=== PATIENT | male | born 1955 | race Caucasian/White ===

== ENCOUNTER 2023-05-24 19:48 | Inpatient (IN) ==
[2023-05-24 20:22] LABS: ABS Basophils 0.1 10^3/uL (0.0-0.1); ABS Eosinophils 0.3 10^3/uL (0.0-0.5); ABS Lymphocytes 1.8 10^3/uL (1.0-4.8); ABS Monocytes 0.5 10^3/uL (0.0-1.1); ABS Neutrophils 2.7 10^3/uL (1.5-7.6); ABS Nucleated RBC 0.01 10^3/ul; Eosinophil % 6.2 %; Hematocrit 43.5 % (38-53); Hemoglobin 14.8 g/dL (13.2-16.3); Lymphocyte % 33.3 %; Mean Corpuscular Hemoglobin 29.6 pg (27-33); Mean Corpuscular Hgb Conc 34.2 g/dL (31-36); Mean Corpuscular Volume 86.5 fL (80-97); Mean Platelet Volume 9.3 fL (7.5-11.2); Nucleated Red Blood Cells % 0.1 /100 WBC (0.0-0.4); Platelet Count 294 10^3/uL (150-450); Red Blood Count 5.02 10^6/uL (4.06-5.63); Red Cell Distribution Width 14.2 % (12-17); White Blood Count 5.4 10^3/uL (3.6-10.2)
[2023-05-24 20:48] LABS: INR 1.08 (0.88-1.18)
[2023-05-24 20:52] LABS: Albumin 4.4 g/dL (3.2-5.2); Albumin/Globulin Ratio 1.6 (1-3); Calcium 9.9 mg/dL (8.6-10.3); Creatinine, Serum 0.84 mg/dL (0.67-1.17); Globulin 2.7 g/dL (2-4); Potassium 4.1 mmol/L (3.5-5.0); Total Bilirubin 0.4 mg/dL (0.2-1.0); Total Protein 7.1 g/dL (6.4-8.9); eGFR CKD-EPI 94.4 (>60)
[2023-05-24] MEDS ORDERED: Morphine 4 MG/ML VIAL (1 ml) IV ONE (21:03)
[2023-05-24] MEDS ORDERED: Al Hydrox/Mg Hydrox/Simet LIQ 30 ML UDC PO ONE (21:03)
[2023-05-24] MEDS ORDERED: Iohexol 350 (CONTRAST) 500 ML MDV IV ONE (21:05)
[2023-05-24] MEDS ORDERED: Ondansetron 4 mg VIAL 2 MG/ML 2 ml VIAL ONE (21:21)
[2023-05-24] MEDS ORDERED: Ondansetron 4 mg VIAL 2 MG/ML 2 ml VIAL IV ONE (21:24)
[2023-05-24 21:31] LABS: High Sensitivity Troponin 1 Hr 20 pg/mL (<20)
[2023-05-24] MEDS ORDERED: Nitro 2% OINT (Nitroglycerin) 1 INCH/PAK TOPICAL ONE (21:57)
[2023-05-24] MEDS ORDERED: Heparin 5000 UNITS/ML 1 mL VIAL ONE (22:01)
[2023-05-24] MEDS ORDERED: Heparin DRIP 25,000 UNITS BAG 25,000 UNITS/500 ML BAG ONE (22:02)
[2023-05-24] MEDS ORDERED: Heparin - STEMI 5,000 UNITS/ML 1 ml VIAL IV ONE (22:09)
[2023-05-24] MEDS ORDERED: VERAPAMIL 2.5 MG/ML 2 ML VIAL ** 5 mg/2 ml ONE (22:40)
[2023-05-24] MEDS ORDERED: nitroGLYCERIN DRIP 25,000 MCG/250 ML BTL ONE (22:40)
[2023-05-24] MEDS ORDERED: Heparin 2 UNITS/ML 1000 mls 3,000 ML IV ONE (22:40)
[2023-05-24] MEDS ORDERED: Heparin 1,000 UNIT/ML 10 ml (10,000 UNITS) CATHLAB/DIALYSIS ONE (22:40)
[2023-05-24] MEDS ORDERED: fentaNYL 100 mcg/2 ml 50 MCG/ML VIAL ONE (22:42)
[2023-05-24] MEDS ORDERED: Iohexol 350 (CONTRAST) 200 ML MDV IV ONE ×2 (22:42→23:50)
[2023-05-24] MEDS ORDERED: Lidocaine 1% MPF 5 ML VIAL ONE (22:42)
[2023-05-24] MEDS ORDERED: Midazolam 5 mg/5 ml VIAL 1 mg/ml 5 ml VIAL (5 mg) ONE (22:42)
[2023-05-24 22:54] LABS: High Sensitivity Troponin 3 Hr 109 pg/mL (<20)
[2023-05-24] MEDS ORDERED: Iohexol 350 (CONTRAST) 100 ML PAK IV ONE (22:59)
[2023-05-24] MEDS ORDERED: Bivalirudin 250 MG VIAL ONE (23:16)
[2023-05-24] MEDS ORDERED: Heparin 2 UNITS/ML 1000 mls 1,000 ML IV ONE (23:19)
[2023-05-25] MEDS ORDERED: NS 0.9% 1000 ml BAG 1,000 ML IV SCH (01:00)
[2023-05-25] MEDS ORDERED: Acetaminophen IV 1 GM/100ML 1,000 MG/100 ML BAG IV PRN (01:49)
[2023-05-25 06:08] LABS: ABS Eosinophils 0.1 10^3/uL (0.0-0.5); ABS Lymphocytes 0.7 10^3/uL (1.0-4.8); ABS Monocytes 0.6 10^3/uL (0.0-1.1); ABS Nucleated RBC 0.01 10^3/ul; Eosinophil % 0.9 %; Hemoglobin 14.1 g/dL (13.2-16.3); Lymphocyte % 9.1 %; Mean Corpuscular Hemoglobin 29.8 pg (27-33); Mean Corpuscular Hgb Conc 34.4 g/dL (31-36); Mean Corpuscular Volume 86.7 fL (80-97); Nucleated Red Blood Cells % 0.2 /100 WBC (0.0-0.4); Platelet Count 230 10^3/uL (150-450); Red Blood Count 4.73 10^6/uL (4.06-5.63); White Blood Count 7.3 10^3/uL (3.6-10.2)
[2023-05-25 06:24] LABS: Calcium 8.8 mg/dL (8.6-10.3); Creatinine, Serum 0.78 mg/dL (0.67-1.17); HDL Cholesterol 60.8 mg/dL; Magnesium 2.1 mg/dL (1.9-2.7); Potassium 4.4 mmol/L (3.5-5.0); eGFR CKD-EPI 96.5 (>60)
[2023-05-25] MEDS ORDERED: Sulfur Hexaflouride MICROSPHR 25 MG VIAL ONE (08:12)
[2023-05-25] MEDS: Mometasone/Formoter 100/5 MDI INH SCH (19:14)
[2023-05-26 06:47] LABS: Calcium 8.9 mg/dL (8.6-10.3); Creatinine, Serum 0.73 mg/dL (0.67-1.17); Potassium 4.4 mmol/L (3.5-5.0); eGFR CKD-EPI 98.5 (>60)
[2023-05-26] MEDS: Mometasone/Formoter 100/5 MDI INH SCH (07:47)
[2023-05-26 11:43] VITALS: BP 108/72
== END 2023-05-26 11:30 | disposition home or self-care (01) | DRG 247 ==
LOC: ED 19:48 → CHICATH 22:50 → ICU 05-25 00:47